=== PATIENT | male | born 1995 | race Caucasian/White ===

== ENCOUNTER 2019-06-02 10:41 | Emergency (ER) | payer OTHER ==
[~2019-06-02] VITALS: Ht 165.1 cm; Wt 58.3 kg
[2019-06-02 11:01] VITALS: BP 134/74
== END 2019-06-02 11:49 | disposition home or self-care (01) ==
LOC: ED 11:41
DX: L02.416 Cutaneous abscess of left lower limb (principal)
CPT/HCPCS: 99281